=== PATIENT | female | born 1995 | race Two or more races ===

== ENCOUNTER 2022-12-13 07:01 | Day surgery (SDC) | payer OTHER | END 2022-12-13 13:00 | disposition home or self-care (01) | LOC: CIR.AMB 07:01 | PROVIDERS: ATTEND Obstetrics & Gynecology | DX: Z30.2 Encounter for sterilization (principal); N83.8 Other noninflammatory disorders of ovary, fallopian tube and broad ligament; Z64.1 Problems related to multiparity; Z20.822 Contact with and (suspected) exposure to COVID-19 ==